=== PATIENT | female | born 1985 | race Caucasian/White ===

== ENCOUNTER 2016-06-25 11:04 | Emergency (ER) | payer OTHER ==
--- NOTE | 2016-06-25 12:39 | RAD ---
CHEST - 2 VIEWS COMPARISON: None. HISTORY: Cough for 5 days. FINDINGS: Views: Frontal and lateral chest Lungs: Normal Heart and vessels: Normal Trachea and bronchi: Normal Mediastinum and snow: Normal Costophrenic sulci: Normal Chest wall and bones: Normal. Upper abdomen: Normal. IMPRESSION: Negative 2 view chest.
== END 2016-06-25 12:50 | disposition home or self-care (01) ==
LOC: ED 11:04
DX: J06.9 Acute upper respiratory infection, unspecified (principal); R50.9 Fever, unspecified